=== PATIENT | male | born 1980 | race Two or more races ===

== ENCOUNTER 2023-11-02 10:06 | Emergency (ER) | payer OTHER ==
[~2023-11-02] VITALS: Ht 175.3 cm; Wt 89.8 kg
[2023-11-02 10:52] LABS: BASOPHILS % (AUTO) 0.8 % (0.0-2.0); EOSINOPHILS % (AUTO) 0.5 % (0.0-6.0); HEMATOCRIT 40 % (39-51); HEMOGLOBIN 13.3 g/dL (13.5-17.5); LYMPHOCYTES # (AUTO) 1.1 K/uL (0.8-4.8); LYMPHOCYTES % (AUTO) 18.3 % (20.0-44.0); MEAN CORPUSCULAR HEMOGLOBIN 28 PG (26.0-33.0); MEAN CORPUSCULAR HGB CONC 33 g/dl (31.0-36.0); MEAN CORPUSCULAR VOLUME 85 fL (80-96); MONOCYTES # (AUTO) 0.3 K/uL (0.1-1.30); MONOCYTES % (AUTO) 5.9 % (2.0-12.0); NEUTROPHILS # (AUTO) 4.3 K/uL (1.8-8.9); NEUTROPHILS % (AUTO) 74.5 % (43.0-81.0); PLATELET COUNT (AUTO) 294 K/uL (150-450); RED BLOOD CELL COUNT(AUTO) 4.77 MIL/uL (4.5-6.0); RED CELL DISTRIBUTION WIDTH 14.9 % (11.5-15.0); WHITE BLOOD COUNT (AUTO) 5.8 K/uL (4.3-11.0)
[2023-11-02] MEDS: IV NS 0.9% 1,000 ML BAG IV ONE (11:04)
[2023-11-02] MEDS ORDERED: MECLIZINE HCL 25 MG TABLET ONE (11:06)
[2023-11-02] MEDS ORDERED: ONDANSETRON HCL/PF 4 MG/2 ML VIAL ONE (11:06)
[2023-11-02 11:07] LABS: CARBON DIOXIDE 28 mmol/L (21-32); CHLORIDE 104 mmol/L (98-107); CREATININE 0.8 mg/dL (0.6-1.3); GLUCOSE 136 mg/dL (74-106); POTASSIUM 3.3 mmol/L (3.5-5.1); SODIUM SERUM 140 mmol/L (136-145)
[2023-11-02 11:19] LABS: UREA NITROGEN, BLOOD 18 mg/dL (7-18)
[2023-11-02] MEDS: ONDANSETRON HCL/PF 4 MG/2 ML VIAL IVP ONE (11:20)
[2023-11-02] MEDS: MECLIZINE HCL 12.5 MG TABLET PO ONE (11:20)
[2023-11-02] MEDS ORDERED: MECL-159 PO (13:53)
[2023-11-02] MEDS ORDERED: ASPIRIN EC 325 MG TABLET.DR PO ONE (14:03)
[2023-11-02] MEDS ORDERED: POTASSIUM CHLORIDE 20 MEQ TAB.PRT.SR PO ONE (14:03)
[2023-11-02] MEDS: ASPIRIN EC 325 MG TABLET.DR PO ONE (14:07)
[2023-11-02] MEDS: POTASSIUM CHLORIDE 20 MEQ TAB.PRT.SR PO ONE (14:07)
[2023-11-02 15:20] VITALS: BP 132/99; TEMP 97.8; O2SAT 99
== END 2023-11-02 15:21 | disposition home or self-care (01) ==
LOC: ER 10:13
DX: F41.9 Anxiety disorder, unspecified (principal); R07.89 Other chest pain; R42 Dizziness and giddiness
CPT/HCPCS: 99285; 96374; 71045; 96361; 93005; 85025; 80048; 36415; 84484 ×2; J8597; J2405; J7030 ×2